=== PATIENT | female | born 1945 | race Caucasian/White ===

== ENCOUNTER 2019-02-28 14:21 | Outpatient (CLI) | payer OTHER ==
[~2019-02-28 14:21] MED LIST: CARDIZEM CD240 MG PO; ZOCOR20 MG PO
== END 2019-02-28 14:23 | disposition home or self-care (01) ==
LOC: LAB 14:21
DX: I10 Essential (primary) hypertension (principal)

== ENCOUNTER 2019-03-02 11:04 | Day surgery (SDC) | payer OTHER | END 2019-03-02 19:10 | disposition home or self-care (01) | LOC: CIR.AMB 11:04 | DX: K64.8 Other hemorrhoids (principal); K64.4 Residual hemorrhoidal skin tags ==